=== PATIENT | female | born 1980 | race Caucasian/White ===

== ENCOUNTER 2019-04-11 15:08 | Inpatient (IN) | payer BC ==
[2019-04-11 16:07] VITALS: BMI 47.7
[2019-04-11] MEDS ORDERED: Acetaminophen 500 MG TAB PO PRN (16:16)
[2019-04-11] MEDS ORDERED: Lidocaine 1% (PF) 30 ML VIAL SC PRN (16:16)
[2019-04-11] MEDS ORDERED: Promethazine HCl 25 MG/ML VIAL IM PRN (16:16)
[2019-04-11] MEDS ORDERED: Diphenoxylate HCl/Atropine Tablet PO PRN (16:16)
[2019-04-11] MEDS ORDERED: Carboprost 250 MCG/ML AMP IM PRN (16:16)
[2019-04-11] MEDS ORDERED: NS / Oxytocin 40 units/1000ml 1,000 ML IV PRN (16:16)
[2019-04-11] MEDS ORDERED: hydrALAZINE 20 MG/ML VIAL SLOW IVP PRN (16:16)
[2019-04-11] MEDS ORDERED: Ibuprofen 800 MG TAB PO PRN (16:16)
[2019-04-11] MEDS ORDERED: Misoprostol 200 MCG TAB PR PRN (16:16)
[2019-04-11] MEDS ORDERED: HYDROcodone/Acetaminophen 5/325 mg Tablet PO PRN (16:16)
[2019-04-11] MEDS ORDERED: Ondansetron PF 4 MG/2 ML Vial IVP PRN (16:16)
[2019-04-11] MEDS ORDERED: Zolpidem Tartrate 5 MG TAB PO PRN (16:16)
[2019-04-11 16:42] LABS: Hemoglobin 10.3 g/dL (12.0-16.0); Mean Corpuscular HGB CONC 33.5 g/dL (32.0-36.0); Mean Corpuscular Hemoglobin 26.6 pg (27.0-31.0); Mean Corpuscular Volume 79.4 fL (78.0-98.0); Platelet Count 162 thou/uL (130-400); RBC Distribution Width 14.2 % (11.5-14.5); Red Blood Cell (RBC) Count 3.87 mill/uL (4.20-5.40); White Blood Cell (WBC) Count 7.4 thou/uL (4.8-10.8)
[2019-04-11] MEDS: Misoprostol 100 MCG TAB VAG SCH ×2 (16:47→23:07)
[2019-04-11] MEDS: Lactated Ringer's 1,000 ML IV SCH (16:47)
[2019-04-11 17:35] LABS: Syphilis Antibody Nonreactive (Nonreactive); Syphilis Antibody Index 0.03 S/CO (<1.00 Non-Reactive)
[2019-04-11 17:36] LABS: Hep B Surf Ag Non-Reactive S/CO (NonReactive)
[2019-04-11 17:52] LABS: ALT (SGPT) 8 U/L (8-55); AST (SGOT) 14 U/L (5-34); Albumin 3.2 g/dL (3.5-5.0); Alkaline Phosphatase 126 U/L (40-150); Anion Gap 14 mmol/L (10-20); BUN (Urea Nitrogen) 17 mg/dL (7.0-18.7); Bilirubin, Total 0.2 mg/dL (0.2-1.2); Calc. Creatinine Clearance 251 mL/min (70-130); Calcium 8.8 mg/dL (7.8-10.44); Carbon Dioxide 22 mmol/L (22-29); Chloride 107 mmol/L (98-107); Estimated GFR-MDRD 89; Globulin 2.3 g/dL (2.4-3.5); Glucose 93 mg/dL (70-105); Protein, Total 5.5 g/dL (6.0-8.3); Sodium 139 mmol/L (136-145)
[2019-04-11 18:29] LABS: Creatinine, Urine 279.24 mg/dL (47-110)
[2019-04-12] MEDS: Lactated Ringer's 1,000 ML IV SCH ×3 (01:50→20:39)
[2019-04-12] MEDS: Misoprostol 100 MCG TAB VAG SCH ×3 (03:39→20:37)
[2019-04-12] MEDS: Butorphanol Tartrate 1 MG/ML VIAL SLOW IVP PRN ×2 (07:50→08:56)
--- NOTE | 2019-04-12 08:16 | PDOC.LDHP ---
Labor and Delivery H&P Chief complaint: other (elevated blood pressure) HPI: 38yo at 38w2d by LMP here for IOL due to new onset elevated blood pressures at term, no sx PIH, s/p hydralazine x 1 overnight, BP has been mild. No sx PIH. s/p cytotec x 4 still 1cm dilated, some painful ctx. Current gestational age (weeks): 38 Due date: 04/25/19 Dating criteria: last menstrual period Grav: 1 Para: 0 Current complications: gestational hypertension, other (excessive maternal weight gain) Abnormal US findings: No Past Medical History: HSV, depression Current medications: pre- vitamins, other (valtrex, lexapro) Previous surgical history: other (wisdom teeth) Allergies/Adverse Reactions: Allergies Allergy/AdvReac Type Severity Reaction Status Date / Time No Known Allergies Allergy Verified 04/11/19 15:52 Social history: none - Physical Exam Vital signs reviewed and normal: yes (elevated blood pressures in mild range) General: NAD Heart: RRR Lungs: CTAB Abdomen: gravid Extremeties: no edema FHT: category 1 - OB Labs Blood type: A RH: negative Antibody Screen: positive HIV: negative RPR: negative HEPSAg: negative 1 hour GCT: negative GBS: negative Urine drug screen: negative Rubella: immune - Assessment L&D Assessment: medically indicated induction - Plan Plan: admit to L&D, labor augmentation if indicated, informed consent obtained, anesthesia consult for pain management -: No sx PIH, BP mild, labs nl, mag for severe features.
[2019-04-12] MEDS ORDERED: Fentanyl 4 mcg/Bup 0.1% Cadd 100 ML ONE ×2 (09:10→16:31)
[2019-04-12] MEDS ORDERED: Lidocaine 1.5%/Epinephrine 1:200,000 5 ML AMPUL IJ ONE (09:23)
[2019-04-12] MEDS ORDERED: ePHEDrine/0.9% NaCl/PF SYRINGE 50 mg/10 ml SLOW IVP PRN (10:38)
[2019-04-12] MEDS ORDERED: Acetaminophen 325 MG TAB PO PRN (10:38)
[2019-04-12] MEDS ORDERED: Naloxone HCl 0.4 mg/ml Vial IVP PRN ×2 (10:38)
[2019-04-12] MEDS ORDERED: Lactated Ringer's 500 ML IV PRN (10:38)
[2019-04-12] MEDS ORDERED: diphenhydrAMINE 50 MG/ML VIAL IVP PRN (10:38)
[2019-04-12] MEDS ORDERED: Promethazine HCl 25 MG/ML VIAL IM PRN (10:38)
[2019-04-12] MEDS ORDERED: Ondansetron PF 4 MG/2 ML Vial IVP PRN ×2 (10:38→22:18)
[2019-04-12] MEDS ORDERED: Communication Order-Pharmacy FS SCH (10:45)
[2019-04-12] MEDS ORDERED: Fentanyl 4 mcg/Bupivacaine 0.1% Cassette 100 ML EPIDURAL SCH (10:45)
[2019-04-12] MEDS ORDERED: Bupivacaine 0.25% HCL 30 ML VIAL ONE (11:11)
--- NOTE | 2019-04-12 13:00 | PDOC.LDPN ---
Labor & Delivery Progress Note - Subjective Subjective: comfortable, no concerns - Objective Vital signs reviewed and normal: yes Abnormal vital signs: mild range BP General: NAD Uterine fundus: non tender Dilation: 6 Effacement: 75% Station: -2 (cook balloon out) FHT: category 1 [place] contractions every: 2-3min AROM: clear fluid Plan: pitocin for augmentation
[2019-04-12] MEDS ORDERED: hydrALAZINE 20 MG/ML VIAL ONE (13:55)
[2019-04-12] MEDS: NS w/ Oxytocin 10 units 500 ML IV SCH ×2 (14:00→20:39)
--- NOTE | 2019-04-12 20:28 | PDOC.OPDEL ---
OB Operative/Delivery Note Delivery Dr/Surgeon: Ayse Assist: n/a Pre-Delivery Diagnosis: medically indicated induction (GHTN at 38w) Procedure/Post Delivery Dx: operative vaginal delivery (VE for maternal exhaustion) Weeks gestation: 38 Anesthesia: epidural - Findings A Sex: male - 1 min: 8 - 5 min: 9 - Additional Findings/Plan Placenta delivered: spontaneous Repaired Obstetrical Laceration: 2nd degree Estimated blood loss: 300 Post delivery plan: routine recovery
[2019-04-12] MEDS ORDERED: HYDROcodone/Acetaminophen 5/325 mg Tablet PO PRN ×2 (22:18)
[2019-04-12] MEDS ORDERED: Milk Of Magnesia 30 ML UDCUP PO PRN (22:18)
[2019-04-12] MEDS ORDERED: Bisacodyl 10 MG SUPP PR PRN (22:18)
[2019-04-12] MEDS ORDERED: Preparation H Ointment 28 GM TUBE PR PRN (22:18)
[2019-04-12] MEDS ORDERED: hydrALAZINE 20 MG/ML VIAL SLOW IVP PRN (22:18)
[2019-04-12] MEDS ORDERED: NS / Oxytocin 40 units/1000ml 1,000 ML IV SCH (22:18)
[2019-04-12] MEDS ORDERED: diphenhydrAMINE 25 MG CAP PO PRN (22:18)
[2019-04-12] MEDS ORDERED: Lanolin Ointment 7 GM TUBE TOP PRN (22:18)
[2019-04-12] MEDS ORDERED: Benzocaine-Menthol 82.5 ML CAN TOP PRN (22:18)
[2019-04-12] MEDS ORDERED: Calcium Gluconate 4.6 MEQ in Sodium Chloride 0.9% 100 ML IVPB PRN (22:26)
[2019-04-12] MEDS ORDERED: Magnesium Sulfate 20 GM/WATER 500 ML BAG IVPB SCH (22:30)
[2019-04-12] MEDS ORDERED: Docusate Calcium (SURFAK) 240 MG CAP PO SCH (22:30)
--- NOTE | 2019-04-13 00:25 | PDOC.EVN ---
Event Note - Event Note Event Note: PPD#1 Denies Silva or visual changes. BX=207/80. Lochia small. Mg at 2 gms/hr. Plan: Cont. Mg x 24 hrs delivered.
[2019-04-13] MEDS: Ibuprofen 800 MG TAB PO SCH ×4 (00:27→18:30)
[2019-04-13] MEDS: Magnesium Sulfate 20 gm/500 ml 20 GM/500 ML BAG IVPB SCH ×3 (00:28→17:21)
[2019-04-13] MEDS ORDERED: Adacel (T-DAP) 0.5 ML SYRINGE IM ONE (09:00)
[2019-04-13] MEDS: Prenatal Vitamin 1 TAB PO SCH (09:17)
[2019-04-13] MEDS: Docusate Calcium (SURFAK) 240 MG CAP PO SCH (09:18)
[2019-04-13] MEDS: Ferrous Sulfate 325 MG TAB PO SCH ×2 (09:18→18:30)
[2019-04-13 09:44] LABS: Hemoglobin 9.2 g/dL (12.0-16.0); Mean Corpuscular HGB CONC 34.1 g/dL (32.0-36.0); Mean Corpuscular Hemoglobin 27.1 pg (27.0-31.0); Mean Corpuscular Volume 79.5 fL (78.0-98.0); Mean Platelet Volume 10.1 fL (7.4-10.4); Platelet Count 144 thou/uL (130-400); RBC Distribution Width 14.5 % (11.5-14.5); Red Blood Cell (RBC) Count 3.39 mill/uL (4.20-5.40)
[2019-04-13] MEDS ORDERED: hydrALAZINE 20 MG/ML VIAL ONE (10:12)
--- NOTE | 2019-04-13 22:29 | PDOC.EVN ---
Event Note - Event Note Event Note: OBGYN: On Mag for 24 hrs . Doing well...BPs 130-140s/80s. UOP is very good. No need for urgent BP meds. No sxs. Vacuum delivery yesterday. OK for DC Mag...last hydralazine was at 1000 this AM.
[2019-04-14] MEDS: Docusate Calcium (SURFAK) 240 MG CAP PO SCH ×2 (01:03→08:26)
[2019-04-14] MEDS: Ibuprofen 800 MG TAB PO SCH ×3 (06:08→19:40)
--- NOTE | 2019-04-14 06:45 | PDOC.PP ---
Post Progress Note Post Day #: 2 (MAG stopped last PM at 2300) Subjective: PATIENT DESIRES NO MALES IN ROOM..so, I rounded with the patient's RN regarding her care to honor no male attendants. No C/Os per RN. Doing well with no BRODERICK nor visual changes. PO intake tolerated: yes Flatus: yes Ambulation: yes Vital Signs (12 hours) Temp 04/14/19 02:00 98.4 F 04/13/19 22:18 98.6 F 04/13/19 22:00 98.3 F Weight Weight 333 lb Vitals reviewed in QS in L&D. BPs 130-140s/70s. 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 Per ACOG...we will monitor today and likely send home after 24 hours off MAG Sulfate. No indication for BP meds at this time.
[2019-04-14] MEDS: Ferrous Sulfate 325 MG TAB PO SCH ×2 (08:26→18:50)
[2019-04-14] MEDS: Prenatal Vitamin 1 TAB PO SCH (08:26)
[2019-04-15] MEDS: Docusate Calcium (SURFAK) 240 MG CAP PO SCH ×2 (00:30→08:32)
[2019-04-15] MEDS: Ibuprofen 800 MG TAB PO SCH ×3 (03:25→12:28)
[2019-04-15] MEDS: Ferrous Sulfate 325 MG TAB PO SCH (08:31)
[2019-04-15] MEDS: Prenatal Vitamin 1 TAB PO SCH (08:31)
[2019-04-15 11:21] VITALS: BP 141/68; TEMP 98
== END 2019-04-15 13:20 | disposition home or self-care (01) | DRG 807 ==
LOC: L&D 15:08 → 3SE 04-14 13:20
PROVIDERS: ADMIT Student in an Organized Health Care Education/Training Program; ATTEND Student in an Organized Health Care Education/Training Program
PROC: 10D07Z6 Extraction of Products of Conception, Vacuum, Via Natural or Artificial Opening (ICD-10-PCS; principal; 2019-04-12)
PROC: 0U7C7ZZ Dilation of Cervix, Via Natural or Artificial Opening (ICD-10-PCS; 2019-04-12)
PROC: 3E033VJ Introduction of Other Hormone into Peripheral Vein, Percutaneous Approach (ICD-10-PCS; 2019-04-12)
PROC: 10907ZC Drainage of Amniotic Fluid, Therapeutic from Products of Conception, Via Natural or Artificial Opening (ICD-10-PCS; 2019-04-12)
DX: O13.4 Gestational [pregnancy-induced] hypertension without significant proteinuria, complicating childbirth (principal); Z37.0 Single live birth; O70.1 Second degree perineal laceration during delivery; Z3A.38 38 weeks gestation of pregnancy
CPT/HCPCS: 36415; 51702; 80053; 82570; 83735; 84156; 85027; 85461; 86780; 86850; 86870; 86900; 86901; 87340; 90384; 96372; J0360; J0595; J2001; J2590; J3475; J3490; S0020